=== PATIENT | female | born 1965 | race Hispanic/Latino ===

== ENCOUNTER 2022-06-25 06:25 | Day surgery (SDC) | payer OTHER, MEDICARE ==
[~2022-06-25] VITALS: Ht 157.5 cm; Wt 65.8 kg
[~2022-06-25 06:25] MED LIST: ALBU90AE2 IH; CALC-190 PO; DICLOFENAC 1% GEL TP; DIFL15OI3 TP; IBUP-2077 PO; LEVO50CA4 PO; LEVO5TAB13 PO; LIDOCAINE 5% TP; METHOTREXATE PO; ROSU10TA28 PO; UPAD30TA PO
[2022-06-25 07:00] VITALS: BP 126/68
[2022-06-25 07:29] LABS: HEMATOCRIT 37.4 % (36-48); MEAN CORPUSCULAR HEMOGLOBIN 31.2 pg (27.0-33.0); MEAN CORPUSCULAR HGB CONC 32.9 g/dL (32.0-36.0); MEAN CORPUSCULAR VOLUME 94.9 fL (79-99); RED BLOOD CELL COUNT(AUTO) 3.94 MIL/uL (4.00-5.50); RED CELL DISTRIBUTION WIDTH 13.3 % (11.0-15.5); WHITE BLOOD COUNT (AUTO) 3.8 K/uL (4.8-10.8)
[2022-06-25 07:40] LABS: CREATININE 0.7 mg/dL (0.5-1.5); POTASSIUM 3.7 mmol/L (3.5-5.1)
[2022-06-25] MEDS ORDERED: 0.9%NACL 1000ML 1,000 ML IV ONE (07:47)
[2022-06-25] MEDS ORDERED: PROPOFOL 10 MG/ML 20ML VIAL IV ONE ×2 (07:52→07:56)
[2022-06-25] MEDS ORDERED: LIDOCAINE HCL-MPF 2% 10ML AMP IJ ONE (07:52)
[2022-06-25 08:05] LABS: INR 1.05 (0.85-1.15); PROTHROMBIN TIME 11.4 SEC (9.6-11.6)
[2022-06-25 08:06] LABS: PARTIAL THROMBOPLASTIN TIME 31.6 SEC (26.3-35.5)
== END 2022-06-25 08:34 | disposition home or self-care (01) ==
LOC: DAH 06:25
PROVIDERS: ATTEND Surgery
DX: K21.9 Gastro-esophageal reflux disease without esophagitis (principal); Z20.822 Contact with and (suspected) exposure to COVID-19; R13.10 Dysphagia, unspecified; K31.89 Other diseases of stomach and duodenum; K29.50 Unspecified chronic gastritis without bleeding; E11.9 Type 2 diabetes mellitus without complications; E66.9 Obesity, unspecified; Z98.890 Other specified postprocedural states; Z79.899 Other long term (current) drug therapy; Z82.49 Family history of ischemic heart disease and other diseases of the circulatory system; Z83.3 Family history of diabetes mellitus; Z68.27 Body mass index [BMI] 27.0-27.9, adult; Z79.01 Long term (current) use of anticoagulants
CPT/HCPCS: 87426; 80048; 85027; 85610; 85730; 81025; 36415; 88305; 88342; 43239; J7030 ×2; J2704 ×2; J3490; A4620; A4215 ×2; A4223; A7002; A4222; A4221; A4663; A4216; A4606

== ENCOUNTER → 2024-02-23 | Outpatient (CLI) | payer OTHER, MEDICARE ==
[~2024-02-23] VITALS: Ht 157.5 cm; Wt 68.7 kg
[~2024-02-23] MED LIST changes: +ALBU18HF7 IH; -ALBU90AE2 IH; +ALBU90AE3 IH; +ALPR2TAB7 PO; +DICL100G60 TP; +LEVO75 PO; +LIDO700A30 TP; +MELO-108 PO; +MONT-39 PO; -ROSU10TA28 PO; +ROSU10TA72 PO; +[UNRECOGNIZED DRUG - OTHER] PO; +azelastine OU; +ceFAZolin SODIUM 2 GM VIAL IVPB SCH
[2024-02-23 11:06] VITALS: BP 143/69; PULSE 79; RESP 18; TEMP 97.7
[2024-02-23 11:08] LABS: BASOPHILS # (AUTO) 0.02 K/uL (0.00-0.20); BASOPHILS % (AUTO) 0.4 % (0.0-5.0); EOSINOPHILS # (AUTO) 0.04 K/uL (0.00-0.70); EOSINOPHILS % (AUTO) 0.8 % (0.0-8.0); HEMATOCRIT 41.2 % (36-48); IMMATURE GRANULOCYTE ABSOLUTE 0.01 K/uL (0-1); LYMPHOCYTES # (AUTO) 1.7 K/uL (1.0-4.8); LYMPHOCYTES % (AUTO) 34.1 % (21.0-51.0); MEAN CORPUSCULAR HEMOGLOBIN 33.3 pg (27.0-33.0); MEAN CORPUSCULAR HGB CONC 33.3 g/dL (32.0-36.0); MONOCYTES # (AUTO) 0.6 K/uL (0.1-1.0); MONOCYTES % (AUTO) 12.2 % (3.0-13.0); NEUTROPHILS # (AUTO) 2.6 K/uL (1.8-7.7); NEUTROPHILS % (AUTO) 52.3 % (40.0-77.0); PLATELET COUNT (AUTO) 267 K/uL (130-400); RED BLOOD CELL COUNT(AUTO) 4.12 MIL/uL (4.00-5.50); RED CELL DISTRIBUTION WIDTH 12.3 % (11.0-15.5)
[2024-02-23 11:23] LABS: POTASSIUM 3.7 mmol/L (3.5-5.1)
== END | disposition home or self-care (01) ==
LOC: EDSTATUS 10:00 → DAH 10:00
PROVIDERS: ATTEND Surgery
DX: Z01.812 Encounter for preprocedural laboratory examination (principal); M79.3 Panniculitis, unspecified; L30.4 Erythema intertrigo; K21.9 Gastro-esophageal reflux disease without esophagitis
CPT/HCPCS: 80048; 84703; 85025; 36415; A6260

== ENCOUNTER 2024-04-02 08:41 | Observation (INO) | payer OTHER, MEDICARE ==
[2024-03-29 09:08] LABS: BASOPHILS # (AUTO) 0.01 K/uL (0.00-0.20); BASOPHILS % (AUTO) 0.2 % (0.0-5.0); EOSINOPHILS # (AUTO) 0.01 K/uL (0.00-0.70); EOSINOPHILS % (AUTO) 0.2 % (0.0-8.0); HEMATOCRIT 41.7 % (36-48); IMMATURE GRANULOCYTE ABSOLUTE 0.02 K/uL (0-1); LYMPHOCYTES # (AUTO) 1.5 K/uL (1.0-4.8); LYMPHOCYTES % (AUTO) 24.2 % (21.0-51.0); MEAN CORPUSCULAR HEMOGLOBIN 33.2 pg (27.0-33.0); MEAN CORPUSCULAR HGB CONC 33.1 g/dL (32.0-36.0); MEAN CORPUSCULAR VOLUME 100.2 fL (79-99); MONOCYTES # (AUTO) 0.6 K/uL (0.1-1.0); MONOCYTES % (AUTO) 9.7 % (3.0-13.0); NEUTROPHILS # (AUTO) 4.1 K/uL (1.8-7.7); NEUTROPHILS % (AUTO) 65.4 % (40.0-77.0); PLATELET COUNT (AUTO) 297 K/uL (130-400); RED BLOOD CELL COUNT(AUTO) 4.16 MIL/uL (4.00-5.50); WHITE BLOOD COUNT (AUTO) 6.3 K/uL (4.8-10.8)
[2024-03-29 09:11] VITALS: BP 173/80; PULSE 64; RESP 14; TEMP 97.8
[2024-03-29 09:17] LABS: CREATININE 0.8 mg/dL (0.5-1.0); POTASSIUM 3.9 mmol/L (3.5-5.1)
--- NOTE | 2024-03-29 09:19 | EKG ---
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
[2024-03-29 09:37] LABS: INR 0.94 (0.85-1.15); PROTHROMBIN TIME 10.2 SEC (9.6-11.6)
[2024-03-29 09:38] LABS: PARTIAL THROMBOPLASTIN TIME 27.9 SEC (26.3-35.5)
[2024-04-02] VITALS (27 sets, daily range): BP systolic 120–158; BP diastolic 62–89; PULSE 69–98; RESP 12–22; TEMP 96.8–98.3; O2SAT 98–100
[~2024-04-02] VITALS: Ht 157.5 cm; Wt 68.3 kg
[~2024-04-02 08:41] MED LIST changes: -ALBU90AE3 IH; -ALPR2TAB7 PO; -CALC-190 PO; -DICL100G60 TP; -DICLOFENAC 1% GEL TP; -DIFL15OI3 TP; +ERGO500093 PO; -IBUP-2077 PO; -LEVO50CA4 PO; -LEVO5TAB13 PO; -LIDO700A30 TP; -LIDOCAINE 5% TP; -MELO-108 PO; -METHOTREXATE PO; +PREG50CA64 PO; -[UNRECOGNIZED DRUG - OTHER] PO; -azelastine OU; -ceFAZolin SODIUM 2 GM VIAL IVPB SCH
[2024-04-02] MEDS: LACTATED RINGERS 1000ML 1,000 ML IV ONE (09:23)
[2024-04-02] MEDS: ceFAZolin SODIUM 2 GM VIAL ONE (09:23)
[2024-04-02] MEDS: 0.9%NACL 1000ML 1,000 ML IV ONE (09:24)
[2024-04-02] MEDS ORDERED: SUCCINYLCHOLINE CHLORIDE 20 MG/ML 10 ML VIAL ONE (10:52)
[2024-04-02] MEDS ORDERED: rocuRONium bROMide 10MG/1ML 5ML VL ONE (10:52)
[2024-04-02] MEDS ORDERED: MIDAZOLAM HCL 1 MG/ML 2ML VIAL ONE (10:52)
[2024-04-02] MEDS ORDERED: FENTanyl CITRate PF 50 MCG/1 ML 2ML VIAL ONE (10:52)
[2024-04-02] MEDS ORDERED: proPOFol 10 MG/ML 20ML VIAL IV ONE (10:52)
[2024-04-02] MEDS ORDERED: dexaMETHasone SOD PHOSPHATE 10MG/ML 1ML VIAL ONE (12:55)
[2024-04-02] MEDS ORDERED: ondanSETRON 4MG INJ ONE (12:55)
[2024-04-02] MEDS: acetaMINOPHEN 100 ML ONE (12:56)
[2024-04-02] MEDS: FENTanyl CITRate PF 50 MCG/1 ML 2ML VIAL ONE (13:32)
[2024-04-02] MEDS: MEPERIDINE-PF 25 MG/ML SYG ONE ×2 (13:38→14:06)
[2024-04-02] MEDS: ketOROlac 15MG/ML VIAL (15MG/ML) ONE (13:38)
--- NOTE | 2024-04-02 13:48 | OP ---
Operative Note: DATE OF PROCEDURE: 04/02/24 SURGEON: EFRAIN CARTAGENA MD JUMPBASTING ARMHOLE BASTER: [] ANESTHESIA: [] General ANESTHESIOLOGIST/WORD PROCESSING SPECIALIST: [] PREOPERATIVE DIAGNOSIS: [] Panniculitis Epigastric pain and status post bariatric surgery POSTOPERATIVE DIAGNOSIS: [] The same SYNOPSIS: [] PROCEDURE: [] Panniculectomy Upper endoscopy with biopsy ESTIMATED BLOOD LOSS: [] 100 cc INDICATIONS: [] DESCRIPTION OF PROCEDURE: [] With the patient prepped and draped in previously marked with the incision from right to left anterior iliac spine. Using cautery and electrical device I was able to create flaps all the way up to the ribs over the fascia. The umbilicus was preserved. After this was done and adequate hemostasis I removed the excess tissue. The rectus muscles were approximated using PDS 0 looped. After adequate anesthesia I then placed the opening for reimplantation of the umbilicus. I then closed the flaps using 2-0 Monocryl in three layers. The 1st when the deep subcutaneous the 2nd with a deep dermal in the 3rd for 0 Monocryl. Two drains were placed and were brought to the side of the incision. The drains were anchored with a nylon. In the umbilicus was reimplanted with a 2-0 Monocryl and 4-0 Monocryl. Steri-Strips and a pressure dressing were placed. After the procedure I went to the head of the patient and the upper endoscopy was performed. I inserted the scope in the usual fashion of the esophagus was normal in passing through the sleeve. I was able to get all the way down to the duodenum. No ulcerations or any abnormality were seen. I do biopsy from the antrum and midportion of the sleeve. I suctioned all the fluid in her and the procedure was completed without any complication. EFRAIN CARTAGENA MD Apr 02, 2024 13:48
[2024-04-02] MEDS ORDERED: morPHINE 4 MG SYG IVP PRN (15:00)
[2024-04-02] MEDS ORDERED: ondanSETRON 4MG INJ IVP PRN (15:00)
[2024-04-02] MEDS: LACTATED RINGERS 1000ML 1,000 ML IV SCH (17:57)
[2024-04-02] MEDS: ceFAZolin SODIUM 2 GM VIAL IVPB SCH (18:44)
[2024-04-03] MEDS: acetaMINOPHEN WITH coDEINE 1 TAB TAB PO PRN (01:08)
[2024-04-03 03:00] VITALS: BP 130/67; PULSE 72; RESP 20; TEMP 98.4
[2024-04-03 06:57] LABS: CREATININE 0.8 mg/dL (0.5-1.0)
[2024-04-03 07:00] LABS: HEMATOCRIT 30.1 % (36-48); IMMATURE GRANULOCYTE ABSOLUTE 0.02 K/uL (0-1); LYMPHOCYTES # (AUTO) 0.8 K/uL (1.0-4.8); LYMPHOCYTES % (AUTO) 9.5 % (21.0-51.0); MEAN CORPUSCULAR HEMOGLOBIN 33.2 pg (27.0-33.0); MEAN CORPUSCULAR HGB CONC 34.6 g/dL (32.0-36.0); MEAN CORPUSCULAR VOLUME 96.2 fL (79-99); MONOCYTES # (AUTO) 0.8 K/uL (0.1-1.0); MONOCYTES % (AUTO) 9.9 % (3.0-13.0); NEUTROPHILS # (AUTO) 6.6 K/uL (1.8-7.7); NEUTROPHILS % (AUTO) 80.4 % (40.0-77.0); PLATELET COUNT (AUTO) 249 K/uL (130-400); RED BLOOD CELL COUNT(AUTO) 3.13 MIL/uL (4.00-5.50); RED CELL DISTRIBUTION WIDTH 13.2 % (11.0-15.5); WHITE BLOOD COUNT (AUTO) 8.3 K/uL (4.8-10.8)
[2024-04-03 07:40] VITALS: BP 128/72; PULSE 74; RESP 20; TEMP 98.5; O2SAT 96
--- NOTE | 2024-04-03 10:24 | DS ---
Discharge Summary HOSPITAL COURSE SUMMARY: [ This is a 59-year-old female postop day one for panniculectomy by Dr. Bateman Interval history: This 59-year-old female seen in her room postop day one. Patient overall doing well. KENDRA is in place with good output. Incision clean and dry. Patient has been compliant with the abdominal binder. At this point in time patient is tolerating diet and likely be cleared for discharge today once instructed on appropriate wound care. Physical exam General: Awake alert and oriented Heart: Regular rate and rhythm} Lungs: [Clear to auscultation no distress Abdomen: [ KENDRA is in place. Expected abdominal discomfort Assessment : This is a 59-year-old female status post panniculectomy Plan: Patient to be instructed on appropriate wound care Patient to keep track of I's and O's of KENDRA drain Follow up in two weeks with Dr. Bateman Patient to be compliant with p.o. antibiotics on discharge This patient's stressed the importance of compliance with the abdominal binder for the next month] DIRECT SUPPORT PROFESSIONAL HOME HEALTH(S): [None] PROCEDURES: [Panniculectomy] PROBLEM(S): [None] DISCHARGE INSTRUCTIONS: [ Follow up in two weeks Monitor output from KENDRA drain Monitor for infection] Home Meds Reported Medications Ergocalciferol (Vitamin D2) (Vitamin D2) 1,250 Mcg (28460 Unit) Capsule, 1250 MCG PO QWEEK, CAP 03/29/24 Pregabalin (Pregabalin) 50 Mg Capsule, 50 MG PO HS, CAP 03/29/24 Montelukast Sodium (Montelukast Sodium) 10 Mg Tablet, 10 MG PO DAILY, TAB 02/23/24 Albuterol Sulfate (Ventolin Hfa) 90 Mcg Hfa.aer.ad, 2 PUFF IH Q6HPRN PRN for S HORTNESS OF BREATH 02/23/24 Levothyroxine Sodium (Levothroid/Synthroid) 75 Mcg Tab, 1 TAB PO ACBKFST 02/23/24 Upadacitinib (Rinvoq) 30 Mg Tab.er.24h, 15 MG PO DAILY, TAB 06/24/22 Rosuvastatin Calcium (Rosuvastatin Calcium) 10 Mg Tablet, 10 MG PO HS, TAB 06/24/22 Discontinued Reported Medications [ultraflora] No Conflict Check, 1 TAB PO DAILY 02/23/24 [azelastine] No Conflict Check, 1 DROP OU AD PRN for itching 02/23/24 Alprazolam (Alprazolam) 2 Mg Tablet, 2 MG PO TID PRN for anxiety, TAB 02/23/24 Meloxicam (Meloxicam) 15 Mg Tablet, 15 MG PO AD PRN for PAIN, TAB 02/23/24 Diclofenac Sodium (Diclofenac Sodium) 1 % Gel..gram., 1-2 GM TP TID PRN for PAIN 02/23/24 Lidocaine (Lidocaine) 5 % Adh..patch, 1 PATCH TP DAILY PRN for PAIN 02/23/24 Time spent arranging discharge: 1-30 minutes KERRI VICTOR Jr. Apr 03, 2024 10:24
[2024-04-03 11:40] VITALS: BP 126/78; PULSE 77; RESP 18; TEMP 98.1
[2024-04-03 16:00] VITALS: BP 137/63; PULSE 72; RESP 16; TEMP 98.1
== END 2024-04-03 19:35 | disposition home or self-care (01) ==
LOC: DAH 08:41 → DAHIP 08:42 → INTOOBSV 08:42 → DAH 08:42 → OBSVTOIN 08:42 → WSH 15:00
PROVIDERS: ADMIT Surgery; ATTEND Surgery
DX: M79.3 Panniculitis, unspecified (principal); L30.4 Erythema intertrigo; K21.9 Gastro-esophageal reflux disease without esophagitis; R10.13 Epigastric pain; E78.00 Pure hypercholesterolemia, unspecified; K76.0 Fatty (change of) liver, not elsewhere classified; Z98.84 Bariatric surgery status; Z79.899 Other long term (current) drug therapy
CPT/HCPCS: 43239; 80048 ×2; 84703; 85025 ×2; 85610; 85730; 36415 ×2; 93005; 15847; 15830; 96365; 81025; 88305; 88312; 96366; 97161; 97116; 97530 ×2; A6260; A4663; J7120 ×3; J3010; J1100; J0330; J7030; J3490; J2250; J2704; J2405; J2175 ×2; J1885; J0690 ×4; A4649; A4215; A4223; A4222; A4221; A4600; A4450; G0378 ×8; 96361

== ENCOUNTER 2025-01-14 07:01 | Day surgery (SDC) | payer OTHER, MEDICAID ==
[2025-01-11 10:20] VITALS: BP 167/82; PULSE 67; RESP 17; TEMP 97.2
[2025-01-11 10:29] LABS: IMMATURE GRANULOCYTE ABSOLUTE 0.01 K/uL (0-1); NUCLEATED RED BLOOD CELLS 0.0 % (0.0-0.19); PLATELET COUNT (AUTO) 239 K/uL (130-400); RED BLOOD CELL COUNT(AUTO) 3.87 MIL/uL (4.00-5.50); RED CELL DISTRIBUTION WIDTH 13.1 % (11.0-15.5); WHITE BLOOD COUNT (AUTO) 5.5 K/uL (4.8-10.8)
[2025-01-11 10:38] LABS: INR 0.98 (0.85-1.15)
[2025-01-11 10:40] LABS: CREATININE 0.6 mg/dL (0.5-1.0); GLOMERULAR FILTR. RATE CALC 103.0 mL/min (>90); GLUCOSE,RANDOM 79.0 mg/dL (70-105); SODIUM SERUM 137.0 mmol/L (136-145); UREA NITROGEN, BLOOD 11.0 mg/dL (7-18)
[2025-01-14] VITALS (15 sets, daily range): BP systolic 119–148; BP diastolic 58–82; PULSE 62–85; RESP 13–18; TEMP 97.5–97.7
[~2025-01-14] VITALS: Ht 157.5 cm; Wt 73.2 kg
[~2025-01-14 07:01] MED LIST changes: +CLOT15CR23 TP; +DICL50TA7 PO; -ERGO500093 PO; +GABA300C PO; +LIDO1ADH71 TP; -MONT-39 PO; +TERB250T89 PO; -UPAD30TA PO
[2025-01-14] MEDS ORDERED: LACTATED RINGERS 1000ML 1,000 ML IV ONE (07:30)
[2025-01-14] MEDS ORDERED: LIDOCAINE PF 100MG/5ML (2%) SYRINGE 5ML ONE (08:18)
[2025-01-14] MEDS ORDERED: MIDAZOLAM HCL 1 MG/ML 2ML VIAL ONE (08:18)
[2025-01-14] MEDS ORDERED: GLYCOPYRROLATE 0.2 MG/ML 5 ML VIAL ONE (10:02)
--- NOTE | 2025-01-14 11:05 | NUR ---
dressing: dressing to abdomen dry/intact with no active bleeding present. no redness/swelling noted to surrounding area. abdominal binder in place.
--- NOTE | 2025-01-14 11:12 | OP ---
Operative Note: DATE OF PROCEDURE: 01/14/25 SURGEON: EFRAIN CARTAGENA MD ACCESSIBILITY LIFT TECHNICIAN: [] ANESTHESIA: [] General ANESTHESIOLOGIST/AUTOMOBILE PARKER: [] PREOPERATIVE DIAGNOSIS: [] Abdominal pain POSTOPERATIVE DIAGNOSIS: [] Same SYNOPSIS: [] PROCEDURE: [] Wound revision of the lower abdomen ESTIMATED BLOOD LOSS: [] Minimal INDICATIONS: [] Significant pain over suprapubic scar DESCRIPTION OF PROCEDURE: [] With the patient under general anesthesia elliptical incision was done around the area of abdominal pain. Using sharp dissection I was able to excise skin subcutaneous tissue for a length of about 30 cm. After gaining to the fascia and cauterized some bleeding points I closed the wound in three layers with 2-0 Monocryl. The 1st one in deep subcutaneous tissue the 2nd one is superficial dermal. I used 4-0 Monocryl for skin approximation and Steri-Strips. I placed a abdominal binder and procedure was completed without any complications EFRAIN CARTAGENA MD Jan 14, 2025 11:12
--- NOTE | 2025-01-14 11:15 | NUR ---
activity/urinary: assisted to standing position without complaining of dizziness. ambulated to bathroom with assistance at slow steady gait. pt voided qs yellow color urine. assisted back to stretcher.
== END 2025-01-14 12:05 | disposition home or self-care (01) ==
LOC: DAH 07:01
PROVIDERS: ATTEND Surgery
DX: T81.31XA Disruption of external operation (surgical) wound, not elsewhere classified, initial encounter (principal); R10.9 Unspecified abdominal pain; Z48.817 Encounter for surgical aftercare following surgery on the skin and subcutaneous tissue; E11.9 Type 2 diabetes mellitus without complications; Z98.84 Bariatric surgery status; Z98.890 Other specified postprocedural states; R93.49 Abnormal radiologic findings on diagnostic imaging of other urinary organs; Z79.01 Long term (current) use of anticoagulants; Z79.899 Other long term (current) drug therapy; Y83.8 Other surgical procedures as the cause of abnormal reaction of the patient, or of later complication, without mention of misadventure at the time of the procedure
CPT/HCPCS: 80048; 84702; 85025; 85610; 36415; 13160; A6260; A4663; J7120 ×2; J3010; J2270; J0665 ×2; J3490 ×2; J2003; J2250; J2704; J0690; A4930; A4215; A4213; A4222; A4221; A4216; A4450; A4223 ×2; A4600

== ENCOUNTER → 2025-02-15 | Outpatient (CLI) | payer OTHER, MEDICAID ==
[~2025-02-15] MED LIST changes: +IOHEXOL-350 75 ML VIAL IV ONE
--- NOTE | 2025-02-16 12:47 | HMCIMG ---
EXAM: CT Abdomen and Pelvis with IV contrast CLINICAL HISTORY: Malignant ascites TECHNIQUE: Axial computed tomography images of the abdomen and pelvis with intravenous contrast. CONTRAST: with intravenous contrast. COMPARISON: None provided. FINDINGS: LUNG BASES: The lung bases appear clear. No pleural effusions are seen. LIVER: Unremarkable. GALLBLADDER AND BILE DUCTS: Cholecystectomy. No biliary ductal dilatation is evident. PANCREAS: Unremarkable. SPLEEN: Unremarkable. ADRENAL GLANDS: Unremarkable. KIDNEYS, URETERS, AND BLADDER: The kidneys appear within normal limits. There is no hydronephrosis or hydroureter. No urinary calculi are seen. STOMACH AND BOWEL: Multiple diverticula in the sigmoid, descending and transverse colon. Unremarkable appearance of the stomach. No evidence of bowel obstruction. No evidence suggesting enteritis or colitis. APPENDIX: No evidence of acute appendicitis on CT examination. PERITONEUM: No free fluid. No free air. No fluid collection. LYMPH NODES: No lymphadenopathy is evident. REPRODUCTIVE: Grossly unremarkable. VASCULATURE: No evidence of abdominal aortic aneurysm. BONES: Grade 1 anterolisthesis of the L4 over L5 vertebra. No aggressive appearing osseous lesion. SOFT TISSUES: 2.9 x 14 x 6.6 cm (AP x TR x CC) sized peripherally enhancing multiloculated collection in the subcutaneous plane in the anterior and the right lateral abdominal wall. IMPRESSION: 2.9 x 14 x 6.6 cm peripherally enhancing multiloculated collection in the subcutaneous plane of the anterior and right lateral abdominal wall - likely an abscess. No intra-abdominal free air, free fluid or fluid collection. /[place]
== END | disposition home or self-care (01) ==
LOC: RAH 08:34
PROVIDERS: ATTEND Surgery
DX: K57.30 Diverticulosis of large intestine without perforation or abscess without bleeding (principal); R18.0 Malignant ascites; M43.17 Spondylolisthesis, lumbosacral region; Z90.49 Acquired absence of other specified parts of digestive tract
CPT/HCPCS: 74177; Q9967